=== PATIENT | male | born 1950 | race Caucasian/White ===

== ENCOUNTER → 2017-06-27 | Outpatient (CLI) | payer OTHER ==
[~2017-06-27] MED LIST: CETI10TA84 PO; LPT/20 PO; TRIA1SPR2 NAE; ZLF/100 PO
--- NOTE | 2017-06-27 16:35 | DIAGNOSTIC IMAGING REPORT ---
BILATERAL LOWER EXTREMITY VENOUS DOPPLER HISTORY: M79.609 Limb [id number] COMPARISON STUDY: None. FINDINGS: There is normal compressibility, flow, and augmentation within the right upper extremity deep venous system. There is heterogeneity with soft tissue swelling within the region of the distal biceps musculature with heterogeneous soft tissue focus measuring up to 2.6 x 4.0 cm. There is associated soft tissue edema within this region. No internal flow within this region is seen. IMPRESSION: 1. No sonographic evidence of deep venous thrombosis within the right upper extremity deep venous system. 2. Focus of soft tissue swelling and tissue heterogeneity in the region of the distal biceps musculature is suspicious for distal biceps tendon tear with retracted musculature. A focal hematoma or soft tissue mass could have a similar appearance. Correlate with clinical exam and patient history. Electronically signed by: Gómez Berman M.D. 06/27/2017 4:34 PM Dictated Date/Time: 06/27/2017 4:31 PM
== END | disposition home or self-care (01) ==
LOC: C.ULTR 15:28
PROVIDERS: ATTEND Physician Assistant Medical
DX: M79.9 Soft tissue disorder, unspecified (principal); M79.601 Pain in right arm

== ENCOUNTER → 2017-07-02 | Outpatient (CLI) | payer OTHER | END | disposition home or self-care (01) | LOC: C.RDSM 14:02 | PROVIDERS: ATTEND Orthopaedic Surgery Sports Medicine | DX: R52 Pain, unspecified (principal) ==

== ENCOUNTER → 2018-02-12 | Outpatient (CLI) | payer OTHER ==
[~2018-02-12] MED LIST changes: -LPT/20 PO; +LPT20 PO
[2018-02-12 12:38] LABS: BASO % 0.5 %; BASO ABS # 0.03 K/uL (0-0.2); EOS % 6.7 %; HEMATOCRIT 44.9 % (42-52); HEMOGLOBIN 15.3 g/dL (14.0-18.0); IG# 0.01 K/uL (0.00-0.02); LYMPH % 35.2 %; MEAN CELL VOLUME 95.5 fL (80-100); MEAN CORPUSCULAR HEMOGLOBIN 32.6 pg (25-34); MEAN CORPUSCULAR HGB CONC 34.1 g/dl (32-36); MEAN PLATELET VOLUME 11.3 fL (7.4-10.4); MONO % 9.1 %; MONO ABS # 0.54 K/uL (0.11-0.59); NEUT % 48.3 %; NEUT ABS # 2.88 K/uL (1.4-6.5); PLATELET COUNT 139 K/uL (130-400); RED CELL DISTRIBUTION WIDTH CV 13.7 % (11.5-14.5); RED CELL DISTRIBUTION WIDTH SD 47.5 fL (36.4-46.3); WHITE BLOOD COUNT 5.96 K/uL (4.8-10.8)
[2018-02-12 13:08] LABS: ALBUMIN 3.9 gm/dl (3.4-5.0); ALT/SGPT 52 U/L (12-78); BLOOD UREA NITROGEN 20 mg/dl (7-18); CALCIUM 8.7 mg/dl (8.5-10.1); CARBON DIOXIDE 28 mmol/L (21-32); CREATININE 1.29 mg/dl (0.60-1.40); GLUCOSE 99 mg/dl (70-99); SODIUM 139 mmol/L (136-145)
[2018-02-12 13:13] LABS: ALKALINE PHOSPHATASE 58 U/L (45-117); AST/SGOT 39 U/L (15-37); CHOLESTEROL 138 mg/dl (0-200); LDL CHOLESTEROL CALCULATED 52 mg/dl; TOTAL PROTEIN 7.5 gm/dl (6.4-8.2)
== END | disposition home or self-care (01) ==
LOC: C.LABBFT 10:00
PROVIDERS: ATTEND Internal Medicine
DX: Z12.5 Encounter for screening for malignant neoplasm of prostate (principal); E78.5 Hyperlipidemia, unspecified

== ENCOUNTER → 2018-03-19 | Outpatient (CLI) | payer OTHER ==
--- NOTE | 2018-03-19 09:54 | DIAGNOSTIC IMAGING REPORT ---
CHEST 2 VIEWS ROUTINE CLINICAL HISTORY: R05 [id number] COMPARISON STUDY: 10/17/2014 FINDINGS: The cardiac and mediastinal contours are normal. There is no evidence of focal pulmonary consolidation. There is no evidence of failure. No pleural effusions are visualized.[ There is minor lingular atelectasis/scarring. IMPRESSION: No active disease in the chest. Electronically signed by: Hemanth Vicente M.D. 03/19/2018 9:53 AM Dictated Date/Time: 03/19/2018 9:49 AM
== END | disposition home or self-care (01) ==
LOC: C.RAD1850 09:36
PROVIDERS: ATTEND Internal Medicine
DX: R05 Cough (principal)

== ENCOUNTER 2021-05-08 08:19 | Inpatient (IN) ==
--- NOTE | 2021-05-02 13:42 | Anesthesiology Consultation ---
Date of Service May 02, 2021 Assessment & Plan (1) Encounter for pre-operative examination: - COVID screening: Per assessment on 04/26: Travel screen negative, no known COVID-19 positive contacts or current COVID-19 related symptoms. Patient vaccinated. Surgeon arranging preop COVID testing (scheduled 05/04; [place]). Awaiting results. - S/P Right eye vitrectomy (03/19/21): MAC at [facility] - Electrophysiology office visit (02/19/21): "Interrogation of his loop recorder demonstrates no detected arrhythmias at all, including atrial fibrillation. His overall heart rate has been stable based on device documentation. Battery voltage is good.. Atrial fibrillation: He had postoperative atrial fibrillation described while he was very ill [facility]. To my knowledge he did not have it prior to that or since. It is possible it was stress related, it could also be related to alcohol intake although he denies that and he seems to be truthful in that regard so I do not think that is a factor. So far we have identified no further atrial fibrillation.. Anticoagulation: Although he was tolerating Eliquis well until we have documentation of recurrent atrial fibrillation I would leave him off of an anticoagulant.. I believe he is to undergo colostomy reversal sometime in early April, at this point I do not see any contraindication to performing that procedure. I would not anticipate the need for more cardiovascular testing." - Possible difficult intubation: Patient had bowel perforation (06/2020) at [facility] > transported to [facility]. Had colostomy. He was unconscious for 23 days. + sepsis. He was on ventilator/required trach > removed prior to discharge. Chart Review Chart Review: Acceptable Risk for Surgery and Patient NOT seen in Pre Admission Testing History Surgery Operation Date: 05/08/21 11:20 Proposed Procedures p Laparoscopic assisted Closure Colostomy Possible Open - Ariel Lowery MD, FACS Height/Weight Height: 5 ft 4 in Weight: 91.172 kg Allergies Allergy/AdvReac Type Severity Reaction Status Date / Time house dust Allergy Mild Sneezing, Verified 05/02/21 13:40 itchy eyes Medications Home Medications Medication Instructions Recorded Confirmed Last Taken loratadine 10 mg PO QAM 06/21/20 04/26/21 03/18/21 sertraline 100 mg tablet 200 mg PO QAM #180 tab 09/20/20 04/26/2103/18/21 levothyroxine 50 mcg tablet 50 mcg PO QAM #90 tab 01/16/21 04/26/21 03/18/21 atorvastatin 20 mg tablet 20 mg PO QAM #90 tab 01/24/21 04/26/21 03/18/21 fluticasone propionate [Flonase] 1 spray INTRANASAL QAM 03/15/21 04/26/21 03/18/21 metronidazole 500 mg tablet 500 mg PO .COMPLEX #3 tab 04/16/21 04/26/21 Unknown neomycin 500 mg tablet 1 g PO .COMPLEX #6 tab 04/16/21 04/26/21 Unknown Past Medical History Medical History Acquired deviated nasal septum Asthma Atrial fibrillation Dx 07/2020, previously on Eliquis but states no longer needs d/t loop recorder, follows with Dr. Pedraza Bowel perforation Bowel perforation (06/2020) at [facility] > transported to [facility]. He was unconscious for 23 days. + sepsis. He was on ventilator/required trach > removed/closed Claustrophobia Comminuted fracture Cutaneous skin tags Depression Elevated prostate specific antigen (PSA) Hyperlipidemia Hypothyroidism Nephrolithiasis Obesity Osteoarthritis Status post placement of implantable loop recorder Implanted 10/2020 ([facility]) Past Family History Family History Unknown Cancer Father Prostate cancer Mother Stomach cancer Other No family history of adverse response to anesthesia Denies family history of Ovarian cancer Myocardial infarction Breast cancer Colorectal cancer Past Surgical History Surgical History History of cataract surgery R/L History of colonoscopy Patient reports post-op drop in O2 "very low" during last colonoscopy in 2018 ([facility]), prolonged time in recovery. [facility] anesthesia records to be scanned into [employer]. Per [facility] anesthesia records (colonoscopy 03/17/18): "Had coughing episodes throughout procedure with need for mask ventilation. B/L wheezing at base of lung way post-op. Respiratory tx given as well as incentive spirometry. CXR obtained with no noted infiltrates only atelectasis. SA02 on RA 95-97%.. OK to D/C to home." Records do report desat to 80% but improvement with mask ventilation. History of cystoscopy History of eye surgery Right x2 (including retinal detachment repair) History of loop recorder 10/2020 ([facility]) History of umbilical hernia repair History of vitrectomy Right eye vitrectomy (03/19/21): MAC at [facility] Hx of colostomy Bowel perforation (06/2020) at [facility] > transported to [facility]. He was unconscious for 23 days. + sepsis. He was on ventilator/required trach > removed/closed Hx of tracheostomy 06/2020 in setting of sepsis S/P PICC central line placement 06/2020 for antibiotics and then removed Social History Smoking Status: Former smoker tobacco type: smokeless tobacco Do You Dip or Chew Tobacco: Yes (1 can/3-4 days > PAT RN advised none DOS ) Smoking End Date: Quit 40 years ago Hx Alcohol Use: Yes Alcohol type: beer alcohol intake frequency: a few times a week Hx Substance Use: No substance use type: does not use Lab Results Anesthesia Preop Results Results Anesthesia Widget: WBC 5.73 K/uL (4.8-10.8) 04/30/21 Hgb 15.2 g/dL (14.0-18.0) 04/30/21 Hct 45.3 % (42-52) 04/30/21 Plt 126 K/uL (130-400) L 04/30/21 Na 140 mmol/L (136-145) 04/30/21 K 4.0 mmol/L (3.5-5.1) 04/30/21 Cl 111 mmol/L (98-107) H 04/30/21 CO2 26 mmol/L (21-32) 04/30/21 BUN 18 mg/dl (7-18) 04/30/21 Creat 1.16 mg/dl (0.6-1.4) 04/30/21 Glucose Level 109 mg/dl (70-99) H 04/30/21 TSH 2.960 uIu/ml (0.300-4.500) 04/30/21 Free T4 0.63 ng/dl (0.8-1.6) L 04/30/21 Testing Electrocardiogram Date: 10/10/20 SR at 75bpm. Chest X-Ray Date: 07/29/20 Appropriately placed right PICC line. No focal consolidation. No pneumothorax. PICC line since removed. Echocardiogram Date: 07/04/20 EF 55- 60%. Thickened aortic and mitral valve. Grade 1 diastolic dysfunction.
[~2021-05-08 08:19] MED LIST changes: -CETI10TA84 PO; -LPT20 PO; +LR 15ML/HR IV SCH; -TRIA1SPR2 NAE; -ZLF/100 PO
[2021-05-08] MEDS ORDERED: fentaNYL citrate 100 MCG/2 ML VIAL ONE (09:11)
[2021-05-08] MEDS ORDERED: LIDOCAINE 2% 2 ML VIAL/AMP(20MG/ML) INFIL ONE ×2 (09:11→10:39)
[2021-05-08] MEDS ORDERED: MIDAZOLAM HCL 1 MG/ML 2ML VIAL ONE (09:11)
[2021-05-08] MEDS ORDERED: BUPIVACAINE 0.5 % 5 MG/1 ML MPF 30ML VIAL ONE (09:33)
--- NOTE | 2021-05-08 09:34 | History & Physical Bridge Note ---
Date of Service May 08, 2021 History & Physical Bridge Note I have examined the patient, reviewed the History & Physical and in the interval since the performance of the History & Physical I have noted the following changes of clinical significance: no changes noted cleared for surgery retinal surgery so at bedside all question answered
[2021-05-08] MEDS ORDERED: SUGAMMADEX SODIUM 200 MG/2 ML VIAL IV ONE ×2 (10:31→10:34)
--- NOTE | 2021-05-08 10:36 | Post Operative Brief Note ---
PG Immediate Post Op with CF Date of Surgery May 08, 2021 Pre & Post Diagnosis Operation Date: 05/08/21 11:20 <No data on this case meets the specified criteria> none cancelled I identified the patient and participated in the time-out.: Yes Procedure Operation Date: 05/08/21 11:20 <No data on this case meets the specified criteria> none cancelled Surgeon Ariel Lowery MD, FACS unable to safely intubate Hotel Night Auditor 0 Estimated Blood Loss 0 Findings Consistent with Post-Op Diagnosis
[2021-05-08] MEDS ORDERED: ONDANSETRON INJ 2 MG/ML 2 ML VIAL ONE (10:39)
[2021-05-08] MEDS ORDERED: ROCURONIUM BROMIDE 10 MG/ML 5 ML VIAL IV ONE (10:39)
[2021-05-08] MEDS ORDERED: PROPOFOL IV EMULSION 10 MG/ML 20 ML VIAL IV ONE (10:39)
[2021-05-08] MEDS ORDERED: DEXAMETHASONE SOD INJ 4 MG/ML VIAL ONE (10:39)
--- NOTE | 2021-05-08 10:55 | Operative Report ---
PG Post Operative Report Pre & Post Diagnosis Operation Date: 05/08/21 11:20 <No data on this case meets the specified criteria> I identified the patient and participated in the time-out.: Yes Procedure Operation Date: 05/08/21 11:20 <No data on this case meets th ecified criteria> Surgery canceled after attempted intubation identifies significant granulomas at the tracheostomy site 6.5 endotracheal tube would go with really difficulty therefore do the elective procedure we plan to cancel the surgery for today ENT was consulted intraoperatively Dr. Barahona looked at the granulation tissue and felt to be best to transfer the patient to either [place] or [facility] in the future for an elective procedure to laser the granulation tissue We discussed the situation with his Lyudmila at this time The patient was awake in no respiratory problems in the operating room and we will plan to keep him overnight just to monitor in case he would develop some edema at the trach trach site Surgeon Ariel Lowery MD, FACS Accounts Adjustable Clerk 0 Estimated Blood Loss 0 Findings Consistent with Post-Op Diagnosis Specimens o Description of Procedure oo I attest to the content of the Intraoperative Record and any orders documented therein. Any exceptions are noted below.
[2021-05-08] MEDS ORDERED: ePHEDrine sulfate 50 MG/ML AMP IV PRN (11:31)
[2021-05-08] MEDS ORDERED: ATROPINE SULFATE 0.1 MG/ML 10ML SYR IV PRN (11:31)
--- NOTE | 2021-05-08 11:38 | Anesthesiology Progress Note ---
Date of Service May 08, 2021 Anesthesia Post Procedure Vital Signs Vital Signs: Temp Pulse Pulse Resp BP Pulse Ox 05/08/21 11:20 72 14 106/73 95 05/08/21 11:10 75 16 124/81 94 05/08/21 11:00 71 13 118/74 97 05/08/21 10:50 70 12 114/72 98 05/08/21 10:43 36.3 C L 71 15 110/78 96 05/08/21 09:16 36.9 C 79 18 142/86 H 96 Transfer of Care Handoff Completed per policy Notes Mental Status: alert / awake / arousable and participated in evaluation Patient Amnestic to Procedure: Yes Nausea / Vomiting: adequately controlled Pain: adequately controlled Airway Patency, RR, SpO2: stable & adequate BP & HR: stable & adequate Hydration State: stable & adequate Anesthetic Complications: see Notes below and Pt Satisfied with anesthetic care Notes: Patient was an easy IV induction and an easy mask after induction. He was given 40 mg of rocuronium and intubation was attempted with a GlideScope and a 7.5 Ett. The tube was easy to pass through the cords, but the balloon would not advance beyond the cords. The patient was ventilated again and a 6.5 ETT was attempted with the same result. A gum bougie was advanced through the ett in an attempt to use the seldinger technique for tube advancement, but the bougie would not pass beyond the base of the cords either. The tube was left in place (tip beyond the cords but no further) and was used to ventilated the patient. A pediatric fiberoptic was then passed through the ETT and initially met some resistance but was then advanced down to the level of the cassandra. When the fiberoptic was pulled back to the point of obstruction for the ETT, a visible granuloma could be seen immediately below the cords and preventing tube advancement. An attempt was made to advance the cord beyond the granuloma by twisting the tube gently under direct fiberoptic visualization, but tube was still unable to advance and some mild bleeding was noted around the granuloma. Discussed the case with Dr. Lowery and decision made to reverse the patient with sugammadex, treat the airway with decadron and reschedule the patient for the planned procedure after ENT has treated the subglottic stenosis. Patient was easily reversed and taken to PACU awake and spontaneously ventilating. The patient tolerated all airway manipulations well and without apparent com plications.
--- NOTE | 2021-05-08 11:46 | ENT Consultation ---
Date of Consultation May 08, 2021 Assessment & Plan (1) Hx of tracheostomy: I was asked emergently to go to [facility] operating room due to difficult intubation by anesthesia. I visualized the bronchoscopy with anesthesia and noted a 1 cm granuloma at the previous tracheostomy site without obvious subglottic stenosis. The endotracheal tube appears to be hung up from the granuloma. The patient was awakened and taken back to the recovery area. He will most likely need bronchoscopy with laser resection of the granuloma. History of Present Illness Reason for Consultation: Airway obstruction. Attending Physician: Ariel Lowery MD, [facility] History of Present Illness I was called emergently to the [facility] operating room when anesthesia had difficulty intubating the patient. He did have previous history of tracheostomy at [place]. I reviewed the fiberoptic bronchoscopy with Dr. Santana. The endotracheal tube appears to be hanging up on a moderate sized granuloma at the previous tracheostomy site in the subglottic region. I did not see subglottic stenosis. Allergies Allergy/AdvReac Type Severity Reaction Status Date / Time house dust Allergy Mild Sneezing, Verified 05/08/21 08:50 itchy eyes Home Medications Medication Instructions Recorded Confirmed Type loratadine 10 mg PO QAM 06/21/20 05/08/21 History sertraline 100 mg tablet 200 mg PO QAM #180 tab 09/20/20 05/08/21 Rx levothyroxine 50 mcg tablet 50 mcg PO QAM #90 tab 01/16/21 05/08/21 Rx atorvastatin 20 mg tablet 20 mg PO QAM #90 tab 01/24/21 05/08/21 Rx fluticasone propionate [Flonase] 1 spray INTRANASAL QAM 03/15/21 05/08/21 History metronidazole 500 mg tablet 500 mg PO .COMPLEX #3 tab 04/16/21 05/08/21 Rx neomycin 500 mg tablet 1 g PO .COMPLEX #6 tab 04/16/21 05/08/21 Rx Patient History Medical History Acquired deviated nasal septum Asthma Atrial fibrillation Dx 07/2020, previously on Eliquis but states no longer needs d/t loop recorder, follows with Dr. Pedraza Bowel perforation Bowel perforation (06/2020) at [facility] > transported to [facility]. He was unconscious for 23 days. + sepsis. He was on ventilator/required trach > removed/closed Claustrophobia Comminuted fracture Cutaneous skin tags Depression Elevated prostate specific antigen (PSA) Hyperlipidemia Hypothyroidism Nephrolithiasis Obesity Osteoarthritis Status post placement of implantable loop recorder Implanted 10/2020 ([facility]) Surgical History History of cataract surgery R/L History of colonoscopy Patient reports post-op drop in O2 "very low" during last colonoscopy in 2018 ([facility]), prolonged time in recovery. [facility] anesthesia records to be scanned into [employer]. Per [facility] anesthesia records (colonoscopy 03/17/18): "Had coughing episodes throughout procedure with need for mask ventilation. B/L wheezing at base of lung way post-op. Respiratory tx given as well as incentive spirometry. CXR obtained with no noted infiltrates only atelectasis. SA02 on RA 95-97%.. OK to D/C to home." Records do report desat to 80% but improvement with mask ventilation. History of cystoscopy History of eye surgery Right x2 (including retinal detachment repair) History of loop recorder 10/2020 ([facility]) History of umbilical hernia repair History of vitrectomy Right eye vitrectomy (03/19/21): [place] [facility] [place]x of colostomy Bowel perforation (06/2020) at [facility] > transported to [facility]. He was unconscious for 23 days. + sepsis. He was on ventilator/required trach > removed/closed Hx of tracheostomy 06/2020 in setting of sepsis S/P PICC central line placement 06/2020 for antibiotics and then removed Family History Unknown Cancer Father Prostate cancer Mother Stomach cancer Other No family history of adverse response to anesthesia Denies family history of Ovarian cancer Myocardial infarction Breast cancer Colorectal cancer Social History Smoking Status: Former smoker Tobacco Type: Smokeless Tobacco (Dip or Chew) Age Started Using Tobacco: 20; Age Quit Using Tobacco: 21; packs per day: 0.25; Years Smoked: 1; Smoking End Date: Quit 40 years ago; Number of Years Since Quit: 48; Second Hand Exposure: Yes (FATHER SMOKED); Do You Dip or Chew Tobacco: Yes (1 can/3-4 days > PAT RN advised none DOS ); Hx Alcohol Use: Yes Alcohol type: beer Alcohol Intake Frequency Comment: Patient will drink a shot of vodka every few months Hx Substance Use: No Preferred Language: Nicarag[place] Communication Ability: Effective Communication Ability Comment: VERY [place] EVEN WITH AIDS Visual Impairment: No Limitations Hearing Ability: Use of Hearing Aid Rivet Tester Required: No Beliefs That Will Affect Care: None marital status: Current Living Situation: Spouse current occupational status: retired How many Children do You have: 2 Other Information That Helps Us Care for You: No Feels Safe at Home: Yes Safety Concerns: Feels Safe At This Time Childhood Exposure to Second-Hand Smoke: Yes caffeine: Yes during the past year weight has: remained stable Dental Care, Regularly: Yes Physical Activity Frequency: Daily Seatbelt Use: always Sunscreen Use: No Assistive Devices: Hearing Aid - Bilateral Assistive Devices Comment: VERY [place] EVEN WITH AIDS Physical Exam Neck: Previous tracheostomy site Respiratory: Moderate sized 1 cm granuloma noted the previous tracheostomy site, seen via bronchoscopy with anesthesia. Results & Data ([facility]) Vital Signs (Past 12 Hours) Vital Signs Temp Pulse Pulse Resp BP Pulse Ox 05/08/21 11:20 72 14 106/73 95 05/08/21 11:10 75 16 124/81 94 05/08/21 11:00 71 13 118/74 97 05/08/21 10:50 70 12 114/72 98 05/08/21 10:43 36.3 C L 71 15 110/78 96 05/08/21 09:16 36.9 C 79 18 142/86 H 96
[2021-05-08] MEDS ORDERED: LACTATED RINGER'S 1,000 ML IV SCH (11:54)
[2021-05-08] MEDS ORDERED: MoRPHine SULFATE 2 MG/ML CARP IV PRN (11:54)
[2021-05-08] MEDS ORDERED: ONDANSETRON INJ 2 MG/ML 2 ML VIAL IV PRN (11:54)
[2021-05-09] MEDS ORDERED: LEVOTHYROXINE SODIUM 50 MCG TABLET PO SCH (06:30)
--- NOTE | 2021-05-09 07:29 | Surgery Progress Note ---
Date of Service May 09, 2021 Assessment & Plan (1) Hx of tracheostomy: seen with Dr. Lowery ok for d/c will arrange for outpatient ENT referral, eventual colostomy takedown after that Admission and Anticipated Discharge Date Admission Date: May 08, 2021 Subjective no c/o, discussed granuloma with him/difficulty intubating Physical Exam Respiratory: normal respiratory effort Results & Data ([facility]) Vital Signs (Past 12 Hours) Vital Signs Temp Pulse Pulse Resp BP Pulse Ox 05/08/21 23:08 84 05/08/21 22:55 36.7 C 103 H 16 124/83 93 05/08/21 19:38 37 C 93 H 16 136/82 94 PG Care Time/CCT Total # of Minutes Spent Total Time Spent with Patient: Total time spent is greater than 50% in coordination of care (as documented) at patient's floor/unit and/or counseling patient: Coding Level of Care Code None Diagnoses Hx of tracheostomy Z98.890
[2021-05-09] MEDS ORDERED: SERTRALINE HCL 100 MG TABLET PO SCH (09:00)
[2021-05-09] MEDS ORDERED: ATORVASTATIN 20 MG TAB PO SCH (09:00)
[2021-05-09] MEDS ORDERED: FLUTICASONE PROPIONATE NA SPR 16 GM BTL NAE SCH (09:00)
[2021-05-09] MEDS ORDERED: LORATADINE 10 MG TAB PO SCH (09:00)
--- NOTE | 2021-05-15 08:58 | Discharge Summary ---
Date of Service May 15, 2021 Principal Diagnosis Tracheal granuloma/subglottic stenosis Colostomy status Discharge Exam Constitutional WD/WN, vitals as above Neck trachea midline, no thyromegaly Discharge Data Allergies Allergy/AdvReac Type Severity Reaction Status Date / Time house dust Allergy Mild Sneezing, Verified 05/08/21 08:50 itchy eyes Procedures Performed Operation Date: 05/08/21 11:20 Actual Procedures p Laparoscopic assisted Closure Colostomy(Not Applicable) - Ariel Noe MD, FACS Hospital Course (1) Colostomy in place: 70 y/o male with colostomy for perforated diverticulitis taken to the operating room for colostomy closure. Anesthesia had difficulty intubating him due to tracheal granuloma from previous tracheostomy. The procedure was aborted, he was awakened and transferred to the surgical floor for overnight observation to make sure he did not have any airway compromise due to edema. He remained stable overnight and was ready for discharge in the morning. He will have outpatient ENT referral for excision of granuloma before returning for colostomy closure. Total Time Total Time Spent Total Time Spent (In Minutes): 15 Discharge Plan Discharge Items Patient Disposition: Home - Self-Care Reason For Visit: Colostomy in Place; History of Diverticulitis Discharge Diagnosis: granuloma of trachea Activity: Resume your previous activity Bathing: No limitations Driving/Machine Use: No limitations Non-emergency contact: Surgeon Call non-emergency contact if: you have any medication questions and you have a fever Follow-up/Referrals: Guillermo Ferguson III, MD [Primary Care Provider] - Ariel Noe MD, FACS [Surgeon] - (Please call to schedule follow up in clinic within a few weeks PER DR NOE'S OFFICE; THEY WILL CALL PATIENT TO DO HOSPITAL F/U; THEY WILL BE REFERRING PATIENT TO ENT.) Diet: Regular Addtl Attending Provider Instructions: Pending Studies at Discharge: No Stand-Alone Forms: [employer], Smoking Cessation Medications and DC Order Prescriptions: Continued sertraline 100 mg tablet 200 mg PO QAM Qty: 180 RF: 3 levothyroxine 50 mcg tablet 50 mcg PO QAM Qty: 90 RF: 3 atorvastatin 20 mg tablet 20 mg PO QAM Qty: 90 RF: 3 metronidazole [Flagyl] 500 mg tablet 500 mg PO .COMPLEX Qty: 3 RF: 0 neomycin 500 mg tablet 1 g PO .COMPLEX Qty: 6 RF: 0 loratadine 10 mg Tablet 10 mg PO QAM RF: 0 fluticasone propionate 50 mcg/actuation [place],Suspension 1 spray INTRANASAL QAM RF: 0 Discharge Orders: Discharge Order (Routine); Ordered 05/09/21 Ordered By: Ryne Voss/Other Patient Handouts: Preventing Falls: Staying Active Admission Data Admit Date/Time: 05/08/21 10:47 Attending Provider: Ariel Noe Admit Provider: Ariel Noe Primary Care Provider: Guillermo Ferguson III Other Interventions: Discharge Summary Assessment (RN) Last Done: 05/09/21 08:56 Coding Level of Care Code D/C DAY MANAGEMENT <30 MINS Diagnoses Colostomy in place Z93.3
--- NOTE | 2021-05-24 08:37 | Coding Query ---
ask Dr Barahona to clarify CODING QUERY To promote full compliance with coding requirements relating to patient care, provider participation is requested in all cases of banquet waiter/waitress uncertainty. 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 The ENT Consultation on 05/08 documents, "Hx of tracheostomy: I was asked emergently to go to #11 operating room due to difficult intubation by anesthesia. I visualized the bronchoscopy with anesthesia and noted a 1 cm granuloma at the previous tracheostomy site without obvious subglottic stenosis. The endotracheal tube appears to be hung up from the granuloma" and, "I was called emergently to the #11 operating room when anesthesia had difficulty intubating the patient. He did have previous history of tracheostomy at [place]. I reviewed the fiberoptic bronchoscopy with Dr. Santana. The endotracheal tube appears to be hanging up on a moderate sized granuloma at the previous tracheostomy site in the subglottic region. I did not see subglottic stenosis". Due to conflicting documentation regarding the Subglottic Stenosis, please clarify below, in your clinical opinion. 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 ( ) Subglottic Stenosis was present and is Not from complication from the previous tracheostomy procedure ( ) Subglottic Stenosis was Not present and is Ruled-Out ( x ) Other: Please Specify__ask DR Barahona to clarify Physician's Response(s): Thank you Mya Cline Principal Diagnosis: "that condition established after study, to be chiefly responsible for occasioning the admission of the patient to the hospital for care." Co-Existing Principal Diagnosis: "when two or more diagnoses equally meet the criteria for principal diagnosis as determined by the circumstances of admission, diagnostic work up, and/or therapy provided, and the Alphabetic Index, Tabular List, or another coding guideline does not provide sequencing direction, any one of the diagnoses may be sequenced first." "When the physician has documented what appears to be a current diagnosis in the body of the record, but has not included the diagnosis in the final diagnostic statement, the physician should be asked whether the diagnosis should be added." ([facility] 2 QTR90. p3-4) DILIA
--- NOTE | 2021-05-28 07:56 | Coding Query ---
CODING QUERY To promote full compliance with coding requirements relating to patient care, provider participation is requested in all cases of sidewalk inspector uncertainty. Please assist us with the question(s) below: Coding Question(s): The following query was placed to Dr. Lowery, who requested that the query be placed to Dr. Barahona. 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 The ENT Consultation on 05/08 documents, "Hx of tracheostomy: I was asked emergently to go to #11 operating room due to difficult intubation by anesthesia. I visualized the bronchoscopy with anesthesia and noted a 1 cm granuloma at the previous tracheostomy site without obvious subglottic stenosis. The endotracheal tube appears to be hung up from the granuloma" and, "I was called emergently to the #11 operating room when anesthesia had difficulty intubating the patient. He did have previous history of tracheostomy at [place]. I reviewed the fiberoptic bronchoscopy with Dr. Santana. The endotracheal tube appears to be hanging up on a moderate sized granuloma at the previous tracheostomy site in the subglottic region. I did not see subglottic stenosis". Due to conflicting documentation regarding the Subglottic Stenosis, please clarify below, in your clinical opinion. 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 ( ) Subglottic Stenosis was present and is Not from complication from the previous tracheostomy procedure ( ) Subglottic Stenosis was Not present and is Ruled-Out ( ) Other: Please Specify Physician's Response(s): Thank you Mya Cline Principal Diagnosis: "that condition established after study, to be chiefly responsible for occasioning the admission of the patient to the hospital for care." Co-Existing Principal Diagnosis: "when two or more diagnoses equally meet the criteria for principal diagnosis as determined by the circumstances of admission, diagnostic work up, and/or therapy provided, and the Alphabetic Index, Tabular List, or another coding guideline does not provide sequencing direction, any one of the diagnoses may be sequenced first." "When the physician has documented what appears to be a current diagnosis in the body of the record, but has not included the diagnosis in the final diagnostic statement, the physician should be asked whether the diagnosis should be added." ([facility] 2 QTR90. p3-4) DILIA
== END 2021-05-09 11:35 | disposition home or self-care (01) | DRG 394 ==
LOC: 3N 08:19 → ASU 08:19 → OBSVTOIN 10:47